=== PATIENT | male | born 1990 | race Caucasian/White ===

== ENCOUNTER 2017-08-23 02:03 | Emergency (ER) | payer SELFPAY ==
[2017-08-23] MEDS ORDERED: IBUPROFEN 600 MG TABLET. PO ONE (02:15)
[2017-08-23 02:18] VITALS: BP 155/96
[2017-08-23] MEDS ORDERED: NALO2AUT IJ (04:13)
--- NOTE | 2017-08-23 04:14 | PHYS DOC ---
Past History Past Medical History: Other Past Surgical History: No Surgical History Alcohol Use: Occasionally Drug Use: Heroin, Methamphetamine, Opiates Adult General Chief Complaint Chief Complaint: OVERDOSE HPI HPI Patient is a 26-year-old gentleman who presents here today by EMS secondary to respiratory failure, cyanosis. Patient was found unresponsive by his sister and mother and his room and EMS was dispatched. Upon arrival patient was apneic, cyanotic, and respiratory failure. Patient received 0.5 mg of IV Narcan by EMS with improvement in his symptoms. Patient reports he utilizes Suboxone but did not take it over the last 2 days so that he can "get high. He reports he has not done this for quite a while. Patient reports he also utilizes Xanax and methamphetamine. Patient denies any other symptomatology. Patient denies any fevers shakes chills nausea vomiting diarrhea chest pain shortness of breath cough cold rhinorrhea at this time. Upon presentation to the ER the patient is currently without any complaints. Patient understands the concern with relapse of his respiratory failure when the half-life of Narcan wears off since it may be shorter than the medications that he is taking. Patient is in agreement to stay in the ER for several hours for observation. Review of systems: Constitutional: Denies fever or chills Eyes: Denies change in visual acuity, redness, or eye pain HENT: Denies nasal congestion or sore throat All other review systems are negative except as documented in the history of present illness portion. Physical exam: Constitutional: Well developed, well nourished, no acute distress, non-toxic appearance. HENT: Normocephalic, atraumatic, bilateral external ears normal, oropharynx moist, no oral exudates, nose normal. Eyes: PERRLA, EOMI, conjunctiva normal, no discharge. Neck: Normal range of motion, no tenderness, supple, no stridor. Cardiovascular:Heart rate regular rhythm, Lungs & Thorax: Bilateral breath sounds clear to auscultation Abdomen: Bowel sounds normal, soft, no tenderness, no masses, no pulsatile masses. Skin: Warm, dry, no erythema, no rash. Back: No tenderness, no CVA tenderness. Extremities: No tenderness, no cyanosis, no clubbing, ROM intact, no edema. Neurologic: Alert and oriented X 3, normal motor function, normal sensory function, no focal deficits noted. Psychologic: Affect normal, judgement normal, mood normal. Assessment and plan This is a 26-year-old gentleman who presents here today secondary to evaluation for 3 failure secondary to narcotic overdose patient is currently clinically and hemodynamically stable. Patient's alert awake and oriented 3. Patient is currently without any complaints. Patient is in agreement with staying in the ED for observation until 5 AM. Patient is currently and bleeding the ER without any difficulty. Patient has been observed and reevaluated multiple times ED that time period and there is no deterioration in his symptoms. Patient will be stable for discharged home at 5:30 AM when his mother to pick him up. Current Medications Current Medications Current Medications Medications (Trade) Dose Ordered Sig/Vijay Start Time Stop Time Status Last Admin Dose Admin Ibuprofen (Motrin) 600 mg 1X ONCE 08/23/17 02:15 08/23/17 03:54 DC 08/23/17 02:15 600 MG Allergies Allergies Allergies Coded Allergies Type Severity Reaction Last Updated Verified No Known Drug Allergies 08/23/17 No Current Patient Data Vital Signs Vital Signs Date Time Temp Pulse Resp B/P (MAP) Pulse Ox O2 Delivery O2 Flow Rate FiO2 08/23/17 03:00 110 16 97 08/23/17 02:18 97.9 Room Air EKG EKG [] Radiology/Procedures Radiology/Procedures [] Course & Med Decision Making Course & Med Decision Making Pertinent Labs and Imaging studies reviewed. (See chart for details) [] Dragon Disclaimer Dragon Disclaimer This chart was dictated in whole or in part using Voice Recognition software in a busy, high-work load, and often noisy Emergency Department environment. It may contain unintended and wholly unrecognized errors or omissions. Departure Departure: Impression: Primary Impression: Opiate overdose Additional Impressions: Opioid use disorder, mild, abuse Respiratory failure Disposition: HOME, SELF-CARE Condition: IMPROVED Referrals: DAIN QURESHI DO (PCP) Patient Instructions: Narcotic Overdose, Opiate Dependence Additional Instructions: You have been given a prescription for naloxone auto injector. This is to be used by your family and friends in case he overdose again narcotic and not breathing and are blue. This could be a life-saving medication but if it is used you must come immediately to the ER. Scripts Naloxone HCl (Evzio) 2 Mg/0.4 Ml Auto.injct 2 MG IJ 1X Y for opioid overdose, #1 SYR Prov: EBER,FRANKY S MD 08/23/17 Problem Qualifiers FRANKY VELÁZQUEZ MD Aug 23, 2017 04:14
== END 2017-08-23 06:10 | disposition home or self-care (01) ==
LOC: ER 02:03
DX: T40.601A Poisoning by unspecified narcotics, accidental (unintentional), initial encounter (principal); T40.2X1A Poisoning by other opioids, accidental (unintentional), initial encounter; J96.90 Respiratory failure, unspecified, unspecified whether with hypoxia or hypercapnia; F11.10 Opioid abuse, uncomplicated; F19.10 Other psychoactive substance abuse, uncomplicated; F15.10 Other stimulant abuse, uncomplicated; Y92.89 Other specified places as the place of occurrence of the external cause
CPT/HCPCS: 99283